=== PATIENT | female | born 1970 | race Caucasian/White ===

== ENCOUNTER 2018-08-31 03:49 | Inpatient (IN) ==
[2018-08-31] MEDS ORDERED: NS 1,000 ML IV ONE ×3 (05:14→08:34)
[2018-08-31] MEDS ORDERED: DILAUDID IV ONE (05:14)
[2018-08-31] MEDS ORDERED: ZOFRAN IV ONE (05:15)
[2018-08-31 05:49] LABS: BASO# 0.04 X1000 (0.0-0.2); BASO% 0.2 % (0.0-0.8); EOS# 0.18 X1000 (0.0-0.7); HEMATOCRIT 32.5 % (37.0-47.0); HEMOGLOBIN 10.1 g/dL (12.0-16.0); IMM GRAN# 0.08 X1000 (0.0-0.04); IMM GRAN% 0.4 % (0.0-0.5); LYMPH# 2.23 X1000 (1.2-3.4); LYMPH% 12.4 % (20.5-51.1); MCH 28.9 PG (27-31); MCHC 31.1 g/dL (33-37); MCV 92.9 FL (81-99); MONO# 1.85 X1000 (0.11-0.59); MONO% 10.3 % (1.7-9.3); MPV 10.8 FL (7.4-10.4); NEUT% 75.7 % (42.2-75.2); PLT 450 X1000 (130-400); RDW 14.3 % (11.5-14.5); WBC 17.98 X1000 (4.8-10.8)
[2018-08-31 06:10] LABS: ALB/GLOB RATIO 0.8; CALCIUM 8.3 mg/dL (8.8-10.2); TOTAL BILIRUBIN 0.24 mg/dL (0.20-1.00); TOTAL PROTEIN 6.7 g/dL (6.3-8.3)
--- NOTE | 2018-08-31 06:30 | PROVIDER DOCUMENTATION ---
HPI-Female /OB/Breast - General Chief Complaint: Flank Pain Stated Complaint: KIDNEY STONE Time Seen by Provider: 08/31/18 05:01 Source: reports: patient, old records Allergies/Adverse Reactions: Patient Allergies Allergy/AdvReac Type Severity Reaction Status Date / Time Penicillins Allergy Intermediate NAUSEA/VOMI Verified 08/31/18 04:05 TING ketorolac tromethamine * AdvReac Severe causes Verified 08/31/18 04:05 [From Toradol] "major headaches" Home Medications: Home Medication List Medication Instructions Recorded Confirmed Last Taken Type Amitriptyline HCl 100 mg PO BID 07/29/13 08/31/18 06/18/18 19:00 History Metoprolol Succinate E.r. [Toprol 100 mg PO BID 07/29/13 08/31/18 06/18/18 19: 00 History Xl] Quetiapine [Seroquel] 300 mg PO QHS 07/29/13 08/31/18 06/18/18 19:00 History Hydroxychloroquine Sulfate 1 tab PO DAILY 08/31/18 08/31/18 Unknown History [Plaquenil] Paroxetine [Paxil] 0 mg PO DAILY 08/31/18 08/31/18 Unknown History - History of Present Illness-Female /OB Nature of Presenting Problem: 48 yo WF with known renal stone forming disease present with severe bilateraal flank and midepigastric pain. She reports "dry heaves" for most of the night . She also reports SLE and unknown blood dyscrazia for which she gets monthly infusions. She did have aan ER visit 06/07 for left ureterolithiasis, a 5 mm stone in the left distal ureter. She was supposed to follow up with Dr Lowe but may not have. She denies fever and chills. Review of Systems - Adult - REVIEW OF SYSTEMS - ADULT ROS:: limited per condition Constitutional: reports: fatique, weight loss Eyes: reports: no symptoms reported Ears, Nose, Mouth & Throat: reports: no symptoms reported Cardiovascular: reports: no symptoms reported Respiratory: reports: no symptoms reported Gastrointestinal: reports: no symptoms reported Genitourinary: reports: see HPI Musculoskeletal: reports: no symptoms reported Integumentary: reports: no symptoms reported Neurological: reports: no symptoms reported Psychiatric: reports: no symptoms reported Past History - Adult - PAST MEDICAL HISTORY-ADULT Review of Records: reports: Old Records Reviewed, Nursing Assessment Review, Medications Reviewed Major Childhood Illnesses: reports: denies history Cardiovascular: reports: HTN Respiratory: reports: denies history, COPD Gastrointestinal: reports: denies history Obstetrical/Gynecological: reports: denies history Genitourinary: reports: kidney stones Musculoskeletal: reports: arthritis, fibromyalgia Neurological: reports: denies history Psychiatric: reports: anxiety Endocrine/Immune: reports: lupus Other Conditions: reports: denies history - PRIOR SURGERIES/PROCEDURES Surgical/Procedure History: reports: hysterectomy, back/neck, other (sinus brain ) - PRIOR HOSPITALIZATIONS Prior Hospitalizations: reports: for other non-related - IMMUNIZATION STATUS Childhood Immunizations: See Nurse Assessment Flu Vaccine: See Nurse Assessment - FAMILY HISTORY Family History: reviewed, not pertinent Physical Exam-General - PHYSICAL EXAM-ADULT Initial Vital Signs Reviewed: Yes - CONSTITUTIONAL General Appearance: alert, severe distress, thin - EYES Eyes: PERRL/EOMI, pink conjunctivae - HEAD, EARS, NOSE, MOUTH & THROAT HENMT: normocephalic/atraumatic, moist mucous membranes - NECK Neck: non-tender - RESPIRATORY Respiratory: chest non-tender, lungs clear - CARDIOVASCULAR Cardiovascular: normal peripheral pulses, regular rate, rhythm - GASTROINTESTINAL (ABDOMEN) Abdominal Exam: normal bowel sounds, guarding. negative: Dickson's sign - MUSCULOSKELETAL Back Exam: normal inspection, no vertebral tenderness - SKIN Integumentary: normal color, normal turgor - NEUROLOGIC Neurologic: grossly normal Progress - PLAN OF CARE/RESULTS Progress/Plan/Lab Results: Vital Signs - 8 hr 08/31/18 03:56 08/31/18 06:21 Temperature 97.8 F Pulse Rate 132 H 114 H Respiratory Rate 20 14 Blood Pressure 101/64 93/61 O2 Sat by Pulse Oximetry 99 99 Laboratory Results - last 24 hr 08/31/18 08/31/18 05:30 05:30 WBC 17.98 H RBC 3.50 L Hgb 10.1 L Hct 32.5 L MCV 92.9 MCH 28.9 MCHC 31.1 L RDW Std Deviation 14.3 Plt Count 450 H MPV 10.8 H Immature Gran % (Auto) 0.4 Neut % (Auto) 75.7 H Lymph % (Auto) 12.4 L [place] % (Auto) 10.3 H Eos % (Auto) 1.0 Baso % (Auto) 0.2 Immature Gran # (Auto) 0.08 H Neut # (Auto) 13.60 H Lymph # (Auto) 2.23 [place] # (Auto) 1.85 H Eos # (Auto) 0.18 Baso # (Auto) 0.04 Sodium 138 Potassium 4.0 Chloride 99 Carbon Dioxide 24 L Anion Gap 15 BUN 14 Creatinine 1.0 H Estimated GFR/1.73 m2 59 BUN/Creatinine Ratio 14 Glucose 97 Calculated Osmolality 276 Calcium 8.3 L Total Bilirubin 0.24 AST 26 ALT 17 Alkaline Phosphatase 92 Total Protein 6.7 Albumin 3.0 L Globulin 3.7 Albumin/Globulin Ratio 0.8 Orders Category Date Time Status Straight Catheterization ORDERED Care 08/31/18 07:[address] RENAL STONE SEARCH [CT] Stat Exams 08/31/18 05:18 Taken BLOOD CULTURE [BLDCUL] Stat Lab 08/31/18 07:24 Ordered CBC WITH ELECTRONIC DIFF [HEME] Stat Lab 08/31/18 05:30 Completed COMPREHENSIVE METABOLIC PANEL [CHEM] Stat Lab 08/31/18 05:30 Completed UA NIMS W/REFLEX CULT [URINALYSIS] Stat Lab 08/31/18 04:10 Uncollected 0.9% Sodium Chloride Inj [Ns] 1,000 ml Med 08/31/18 05:14 Discontinued IV 999 mls/hr CefTRIAXONE [Rocephin] 1 gm Med 08/31/18 07:02 Active 0.9% Sodium Chloride Inj [Ns] 50 ml IV NOW Hydromorphone [Dilaudid] Med 08/31/18 05:14 Discontinued 1 mg IV NOW ONE Ondansetron [Zofran] Med 08/31/18 05:15 Discontinued 4 mg IV NOW ONE Result Diagrams: 08/31/18 05:30 08/31/18 05:30 - CONSULTS/PCP/HOSPITALIST Notification #1 *Consult/PCP/Hospitalist*: Dr Noguera Time Discussed: 06:53 Consult Disposition: Will see in ED (He suggest admitting to hospitalist and he will see in consultation.) #2 Consult: DR TSAI Time Discussed: 07:29 Consult Disposition: Admit Departure - Departure Date of Disposition Decision: 08/31/18 Time of Disposition Decision: 07:00 DIAGNOSIS: Ureteral stone with hydronephrosis, Leukocytosis Disposition: ADMITTED INPATIENT 09 Certified Medical Emergency: Emergent Condition: Stable Referrals and Follow-Ups: Familia Saul MD [Primary Care Provider] - Discharge Education: Steps to Quit Smoking, [id number] - Critical Care Note This patient required my direct & personal management of CC.: No Attestation - Physician/ CRISTHIAN Attestation Patient care was provided by Advanced Practice Provider:: No The physician spent face to face time with patient:: Yes Advanced Practice Provider documentation review:: Supervising physician onsite and consulted in the evaluation and care of this patient. The physician did have a face to face encounter with the patient.
[2018-08-31] MEDS ORDERED: ROCEPHIN 1 GM in NS 50 ML IV ONE (07:02)
[2018-08-31] MEDS ORDERED: NS 1,000 ML IV SCH (07:30)
[2018-08-31 07:41] LABS: URINE SOURCE CLEAN CATCH
[2018-08-31 07:46] LABS: BILIRUBIN URINE NEGATIVE (NEGATIVE); BLOOD URINE NEGATIVE (NEGATIVE); COLOR YELLOW; GLUCOSE URINE NEGATIVE (NEGATIVE); KETONE URINE TRACE mg/dL (NEGATIVE); LEUKOCYTES URINE LARGE (NEGATIVE); NITRITE URINE POSITIVE (NEGATIVE); PH URINE 5.5; PROTEIN URINE 30 mg/dL (NEGATIVE); SP GRAVITY URINE 1.012; TURBIDITY URINE HAZY (CLEAR); UROBILINOGEN URINE NORMAL (NORMAL)
[2018-08-31 07:48] LABS: UR EPITHELIAL CELLS <10 /HPF (<10); URINE BACTERIA 4+ /HPF; URINE RBC <10 /HPF (<10); URINE WBC TNTC /HPF (<10)
[2018-08-31] MEDS ORDERED: INVANZ 1 GM/NS 1 GM/50 ML IVPB IV ONE (08:00)
[2018-08-31] MEDS ORDERED: DIPRIVAN 1% ONE (08:48)
[2018-08-31] MEDS ORDERED: FENTANYL ONE (08:48)
[2018-08-31] MEDS ORDERED: XYLOCAINE-MPF 2% ONE (08:50)
[2018-08-31] MEDS ORDERED: DECADRON ONE (08:50)
[2018-08-31] MEDS ORDERED: ZOFRAN ONE ×2 (08:50→10:37)
--- NOTE | 2018-08-31 09:43 | Diag Imaging Result Doc PS360 ---
EXAM: CT RENAL STONE SEARCH INDICATION: flank pain TECHNIQUE: This exam was performed using automated exposure control, adjustment of mA or kV according to patient size, and/or use of iterative reconstruction technique. COMPARISON: 06/07/2018 FINDINGS: There is platelike atelectasis or, less likely, mild infiltrate involving the lingula. There has been a prior cholecystectomy. There is a subcentimeter tiny hypodensity in the anterior aspect of the right hepatic lobe that is stable, probably a small cyst. The liver is grossly unremarkable, otherwise. The spleen, pancreas, and adrenal glands are unremarkable. There is a 5 mm obstructing stone in the distal left ureter just a few centimeters proximal to the UVJ and there is associated moderate left hydroureteronephrosis. This appears to be a different stone in the one that was obstructing on the previous study a few months ago. There are a few punctate nonobstructing intrarenal stones on the left as well. The right kidney is unremarkable. The urinary bladder is unremarkable. There are multiple phleboliths in the pelvis. There has been a previous hysterectomy. There is abundant stool in the colon suggesting possible constipation. There is no evidence of bowel obstruction. No focal bowel wall thickening is identified. The GI tract is essentially unremarkable, otherwise. The bony structures are intact. IMPRESSION: 1.Left nephrolithiasis with a 5 mm obstructing stone in the distal left ureter and associated moderate left hydroureteronephrosis. 2.Possible constipation. 3.Platelike atelectasis or, less likely, mild infiltrate involving the lingula. Please correlate clinically. Electronically signed by Geraldo Brown 08/31/2018 9:41 AM
[2018-08-31] MEDS ORDERED: NEOSPORIN G.U. IRRIGANT ONE ×2 (09:59→10:02)
--- NOTE | 2018-08-31 09:59 | CONSULTATION ---
DATE OF CONSULTATION: 08/31/2018 CHIEF COMPLAINT: Bilateral flank pain and urinary tract infection. HISTORY OF PRESENT ILLNESS: Ms. Hunter is a 48-year-old who presented to the emergency room overnight with complaint of bilateral flank pain with associated nausea and dry heaving. She previously was evaluated in the emergency room with a CT scan back in May, which showed a 5 mm stone in the left ureter and another stone in the left kidney. She thinks that she may have passed the ureteral stone. However, her pain returned last night and now is bilateral. She describes low-grade temperatures at home that respond to ibuprofen with associated nausea and vomiting, and currently is dry heaving in the emergency room. She denies any hematuria, but previously has seen Dr. Lowe for hematuria. The patient has a long history of kidney stones, and states that they have had to go "bust them up" multiple times. She cannot remember the last time that she was seen by a urologist. Denies urgency, frequency, or sensation of incomplete emptying. PAST MEDICAL HISTORY: 1. Fibromyalgia. 2. Arthritis. 3. COPD. 4. Hypertension. 5. Anxiety. 6. Nephrolithiasis PAST SURGICAL HISTORY: 1. Wrist surgery. 2. Hysterectomy. 3. Cholecystectomy. 4. Neck fusion. 5. Sinus surgery. 6. Port placement. 7. Ureteroscopy and stone removals-Multiple ALLERGIES: 1. Penicillin. 2. Toradol. MEDICATIONS: 1. Amitriptyline 100 mg p.o. b.i.d. 2. Metoprolol 100 mg p.o. b.i.d. 3. Seroquel 300 mg p.o. daily. 4. Hydroxychloroquine sulfate 1 tablet daily. 5. Paxil p.o. daily. FAMILY HISTORY: A family history of kidney stones and denies malignancy. SOCIAL HISTORY: Half a pack of cigarettes daily. Denies alcohol or illicit drug use. REVIEW OF SYSTEMS: Twelve-point review of systems performed which was negative. PHYSICAL EXAMINATION: Vital Signs: Heart rate 114, blood pressure 93/61, oxygen saturation 99% on room air. General: Mild to moderate distress resting comfortably in bed. Alert and oriented x3. HEENT: Pupils equal, round, and reactive to light. Mucous membranes moist. Normocephalic, atraumatic. Lungs: Good respiratory effort without audible wheezing or rales. Cardiovascular: Tachycardia with no evidence of lower extremity edema. Abdomen : Soft, nontender, and nondistended. No palpable masses. No hepatosplenomegaly. : No suprapubic tenderness. Mild left CVA tenderness. Neurologic: Gross motor and sensory intact. Musculoskeletal: Moving all extremities without issue. Skin: No obvious skin lesions or rashes. LABORATORY: White blood cell count 17.98, hemoglobin 30.1, hematocrit 32.5, and platelets 450,000. Sodium 138, potassium 4, chloride 99, bicarb 24, BUN 14, creatinine 1.0, and glucose 97. Urinalysis 4+ bacteria, too numerous to count leukocytes, nitrite positive, and negative blood. IMAGING: CT of the abdomen and pelvis was performed, which showed moderate hydroureteronephrosis down to the distal ureter on the left with possible stone in distal left ureter. There was several calcifications and phleboliths in the pelvis with no hydro on the right side. ASSESSMENT AND PLAN: Ms. Hunter is a 48-year-old who presents for evaluation for bilateral flank pain, and concern for urinary tract infection. The patient's urine definitely appears to be infected. She is nitrite positive with 4+ bacteria. I am concerned that she may be developing pyelonephritis with lower BPs and tachycardia. She has been afebrile while here , but does describe some low-grade temperatures. The patient's creatinine also slightly up from several days ago, and with her white blood cell count of 18, I recommended that she undergo cystoscopy and bilateral retrograde pyelograms in consideration for left ureteral stent placement. Risks, benefits, and alternatives were discussed with the patient, and the patient elected to proceed. We will plan to perform procedure later today. Will send urine culture and start on antibiotics. Will tailor antibiotics to culture specific regiment. Monitor postoperative pain. Please call with questions. cc: Darrel Noguera MD [facility]
[2018-08-31] MEDS: DILAUDID ONE ×4 (10:27→10:48)
[2018-08-31] MEDS ORDERED: PYRIDIUM PO PRN (10:48)
[2018-08-31] MEDS ORDERED: LEVSIN PO PRN (10:48)
[2018-08-31] MEDS ORDERED: FLOMAX PO ONE (11:00)
[2018-08-31] MEDS ORDERED: ZOFRAN IV PRN (11:50)
--- NOTE | 2018-08-31 12:24 | HISTORY AND PHYSICAL ---
PRIMARY CARE PHYSICIAN: Dr. Saul Immunoglobulin deficiency. Physician is Dr. Yoshi Nolasco. CHIEF COMPLAINT: Left flank abdominal pain for 3 days. HISTORY OF PRESENT ILLNESS: Ms. Alaina Hunter is a 48-year-old female with a medical history of urolithiasis and currently has a right double-J stent placed. Back in 01/2018, she actually had nonobstructive stones on the left but now presents with left flank abdominal pain and dysuria as well. Urinalysis reveals that she has urinary tract infection. She had a renal CT performed which showed an obstructive 5 mm kidney stone on the left, and Dr. Noguera with Urology was consulted and plans with stone removal today. She denies having any fever or chills. She claims that she did pass a stone earlier yesterday but was unable to continue passing stones. She claims to have been drinking an adequate amount of water. Denies any nausea or vomiting, just significant pain and dysuria. Labs revealed elevated white count of 17. She is tachycardic with a mildly low blood pressure, so she will receive IV fluid hydration and antibiotic therapy. PAST MEDICAL HISTORY: 1. Lupus. 2. Fibromyalgia with chronic pain syndrome. 3. Hypertension. 4. Urolithiasis. 5. IgG deficiency. 6. Constipation with bowel movements once every 2 to 3 days secondary to chronic use of narcotics. 7. Anxiety and depression. PAST SURGICAL HISTORY: 1. Most recently in 03/2018 had a right chest port placed. 2. Right ureteral double-J stent with stone extraction. 3. Lithotripsy. 4. Sinus surgery. 5. Neck surgery. 6. Hysterectomy. SOCIAL HISTORY: Half pack per day smoker for 40 plus years. Denies alcohol or illicit drug use. She lives at home with a friend named Wesley Colbert. FAMILY HISTORY: Mother's side of the family had breast cancer, lung cancer, and colon cancer. Mother also had kidney stones. Father's side of the family had heart disease. ALLERGIES: Penicillin and Toradol. HOME MEDICATIONS: Seroquel 300 mg p.o. nightly, amitriptyline 100 mg p.o. twice daily, Plaquenil 200 mg p.o. daily, Toprol extended release 100 mg twice daily, Paxil 10 mg p.o. daily. REVIEW OF SYSTEMS: A 14-point review of systems was complete, and all were negative except for those mentioned in the above HPI. Positive is that she is having left abdominal and flank pain for 3 days. She claims to have had a weight loss of 3 pounds in 2 months, decreased appetite, constipation, otherwise no other complaints. PHYSICAL EXAMINATION: VITAL SIGNS: Temperature is 98.6, heart rate 103, respiratory rate 20, blood pressure 107/63, O2 saturation is 98% on room air. GENERAL: Ms. Alaina Hunter is a 48-year-old female. She is in no acute distress. She is able to answer questions appropriately. She does occasionally moan with the pain in her left flank area. HEENT: Atraumatic and normocephalic. Pupils are equal, round and reactive to light. Extraocular movements were intact. Mucous membranes are dry. NECK: Trachea midline. CARDIOVASCULAR: S1 and S2. Tachycardic rate and rhythm. No rubs, gallops, or murmurs. No lower extremity edema. Negative for carotid bruits. Negative for JVD. Plus 2 dorsalis and radial pulses. PULMONARY: Clear to auscultation with bilateral breath sounds. No accessory muscle use or work of breathing noted. GASTROINTESTINAL: Soft. Tender in the left upper mid area and also left CVA tenderness. Hypoactive bowel sounds x4. EXTREMITIES: Moves all extremities equally with full range of motion. NEUROLOGICAL: Alert and oriented x3. Follows commands. Sensory is intact. SKIN: Warm, dry, and intact. DIAGNOSTIC DATA: White blood cells 17, hemoglobin 10, hematocrit 32, platelet count 450. Sodium is 138, potassium 4.0, BUN is 14, creatinine 1.0, glucose 97, calcium 8.3. Bilirubin is 0.24, AST is 26, ALT is 17, albumin 3.0, lactate not available yet. Urinalysis with 30 protein, trace ketones, positive nitrites, large leukocytes, too numerous to count white blood cells, 4+ bacteria. IMAGING: Report of the renal CT is not available yet, but the ER physician documented a 5 mm kidney stone that is obstructing on the left. ASSESSMENT AND PLAN: 1. Left obstructive kidney stone 5 mm. She will be going today with Dr. Noguera for renal stone extraction and possible stenting. 2. Urinary tract infection. Symptomatic with signs of sepsis, but she will receive fluid boluses x2 L, and then she will have IV fluids running at 150 mL an hour. Antibiotic coverage: She received a dose of Rocephin in the ER, but she will be continued on Invanz 1 g IV q.24 hours. She has an allergy to penicillins. 3. Left flank abdominal pain, severe. She will receive Dilaudid 1 mg IV q.3 hours p.r.n. 4. Fibromyalgia and lupus, chronic pain syndrome from that. She claims to take Percocet at home for that. It is not listed on her pain medication. She will continue her Plaquenil. 5. Hypertension. Currently hypotensive. Toprol will be held. 6. IgG deficiency. Dr. Nolasco follows her for that. She apparently has IV infusions once a month with a new right chest port that was placed in 03/2018. 7. Anxiety and depression. We will continue Seroquel and Paxil. 8. Tobacco abuse. Cessation discussed. Currently no plans to quit. 9. DVT prophylaxis with SCDs. Dictated by GIANFRANCO Dumont for David Hooks MD cc: GIANFRANOC Dumont MD Leroy F. Harris, MD Moses Awoniyi, MD William E. Hughes, MD I have seen and examined Ms Hunter today. I have also reviewed her labs and imagining studies. Ms Hunter has hx of SLE and previous kidney stones. Presents with Left flank abdominal pain for 3 days. IMAGING: Renal Ct reports a 5 mm kidney stone that is obstructing on the left. Urology has been consulted. I agree with the above HPI and the plan reflects my opinion discussed with the [facility]. JANETTE
[2018-08-31] MEDS: LR 1,000 ML IV SCH (12:32)
[2018-08-31] MEDS: DILAUDID IV PRN ×3 (12:32→21:04)
--- NOTE | 2018-08-31 19:27 | OPERATIVE NOTE ---
PROCEDURE DATE: 08/31/2018 PREOPERATIVE DIAGNOSES: 1. Left obstructing ureteral stone. 2. Left hydronephrosis. 3. Urinary tract infection. POSTOP DIAGNOSES: 1. Left obstructing ureteral stone. 2. Left hydronephrosis. 3. Urinary tract infection. PROCEDURE PERFORMED: 1. Cystoscopy. 2. Bilateral retrograde pyelogram. 3. Left ureteral stent placement. SURGEON: Darrel Noguera MD. COMPLICATIONS: None. ANESTHESIA: LMA. DRAINS: 6 x 24 cm left ureteral stent. SPECIMENS: None. OPERATIVE FINDINGS: Patient had a normal cystoscopy with no evidence of any mucosal abnormalities. A small amount of sediment was seen in the bladder on placement of scope. No bladder tumors, diverticulum, cellules, or bladder stones. Bilateral retrograde pyelograms were performed on the right with a normal ureter with no evidence of any obstruction with a delicate collecting system. On the left there was some difficulty passing the contrast past the obstructing stone. I was able to get a stent by this and had good curl both in the kidney as well as in the bladder. A small amount of sediment was then seen passing through the stent and appeared to be in good position on followup fluoroscopy. INDICATION FOR PROCEDURE: Ms. Hunter is a 48-year-old female who presented to the emergency room overnight complaining of bilateral flank pain. She had a CT scan performed which showed a possible 5 mm obstructing stone in the distal left ureter with associated hydroureteronephrosis. No obvious obstruction was seen on the right side. The patient's urinalysis showed 4+ bacteria, nitrite positive and many leukocytes, no blood present. White blood cell count was elevated at 18 and creatinine was 1.0. Due to persistent pain and concern for urinary tract infection with an obstructing stone is recommend to go cystoscopy and placement of left ureteral stent with plan to proceed with bilateral retrograde pyelogram since she is complaining of bilateral flank pain. Risks, benefits, alternatives surgical procedure discussed with patient, patient elected proceed. DESCRIPTION OF PROCEDURE: After informed consent was obtained, the patient was brought to the operating placed on operative table supine position. She underwent general anesthesia and received preoperative antibiotics and had received antibiotics previously in the emergency room. Following this she was placed into a dorsal lithotomy position was prepped and draped in usual sterile fashion. A preoperative time-out was performed with all parties in agreement, including anesthesia, surgical and nursing staff. Next a 21-Hebrew cystourethroscope was inserted through the urethra showing normal caliber urethra. No evidence of any stricture disease. Once inside the bladder the entire bladder was inspected with no evidence of any mucosal abnormalities, no papillary lesions, diverticulum, cellules, trabeculations, or bladder stones at which time both ureteral orifices visualized with efflux of clear yellow urine. There was some sediment present in the bladder itself. This was completely drained and then a open-ended ureteral catheter was inserted through the scope. A right retrograde pyelogram was then performed which outlined a normal ureter. No evidence of any obstruction or filling defects. The collecting system was delicate with no evidence of hydronephrosis. Open-ended catheter was removed and good drainage was seen from the collecting system. Attention was then placed to the left side. The left ureteral orifice was cannulized and flushed with Omnipaque that had gentamicin and irrigant present. It was difficult to get the contrast past the obstructing stone. Subsequent passed a wire through the open-ended catheter and seen to coil fluoroscopically up in the renal pelvis. Following this, open-ended catheter was completely removed and a [id number] stent was then passed over the wire and seen to fluoroscopically curl within the collecting system endoscopically visualized in the bladder. Drainage was seen through the holes and around the stent itself and had a small amount of sediment present. Post fluoroscopy showed good stent placement. Bladder was then cycled and drained. The patient then was awoken and was taken to recovery in stable condition. DISPOSITION: Patient will be admitted to the hospitalist for observation overnight and monitoring of pain as well as symptoms of urinary tract infection. Would continue with antibiotics, Flomax, Pyridium and Levsin as necessary for bladder spasms. cc: Darrel Noguera MD [facility]
[2018-08-31] MEDS: LOVENOX SUBQ SCH (21:05)
[2018-08-31] MEDS: PERIDEX MT SCH (21:05)
[2018-09-01] MEDS: DILAUDID IV PRN ×6 (00:42→20:11)
[2018-09-01] MEDS: LR 1,000 ML IV SCH (01:32)
[2018-09-01 06:18] LABS: BASO# 0.08 X1000 (0.0-0.2); BASO% 0.6 % (0.0-0.8); EOS# 0.43 X1000 (0.0-0.7); EOS% 3.3 % (0.0-10.0); HEMATOCRIT 29.9 % (37.0-47.0); IMM GRAN# 0.03 X1000 (0.0-0.04); IMM GRAN% 0.2 % (0.0-0.5); LYMPH# 2.71 X1000 (1.2-3.4); LYMPH% 20.9 % (20.5-51.1); MCH 28.8 PG (27-31); MCHC 30.1 g/dL (33-37); MCV 95.8 FL (81-99); MONO# 1.09 X1000 (0.11-0.59); MONO% 8.4 % (1.7-9.3); NEUT% 66.6 % (42.2-75.2); PLT 460 X1000 (130-400); RBC 3.12 XMIL (4.2-5.4); RDW 14.4 % (11.5-14.5); WBC 12.94 X1000 (4.8-10.8)
[2018-09-01 06:48] LABS: AGAP 14; BUN 7 mg/dL (8-22); CALCIUM 8.3 mg/dL (8.8-10.2); CHLORIDE 104 mmol/L (98-107); COSMO 279; CREATININE 0.8 mg/dL (0.5-0.9); ESTIMATED GFR > 60; GLUCOSE 63 mg/dL (70-104); IRON SATURATION 12 %; POTASSIUM 4.1 mmol/L (3.5-5.1); SODIUM 142 mmol/L (136-145); TCO2 24 mmol/L (25-35); TIBC 156 ug/dL; TOTAL IRON 18 ug/dL (49-151); UNBOUND IRON 138 ug/dL (112-346)
[2018-09-01 06:59] LABS: FERRITIN 172 ng/mL (13-150)
[2018-09-01] MEDS: INVANZ 1 GM/NS 1 GM/50 ML IVPB IV SCH (09:00)
[2018-09-01] MEDS: FLOMAX PO SCH (09:00)
[2018-09-01] MEDS: PERIDEX MT SCH ×2 (09:00→20:11)
--- NOTE | 2018-09-01 09:10 | PROGRESS NOTE ---
DATE: 09/01/2018 SUBJECTIVE: Postop day 1 from cystoscopy, bilateral retrograde pyelograms, and left ureteral stent placement. Overall, the patient seems to be doing well. She remains afebrile. She states that her pain is much better after her procedure yesterday. She is able tolerate a little bit of p.o. intake, and has been remaining hydrated, drinking Propel as well as water. She denies any nausea or vomiting, and states that she has been voiding without issue. She denies any significant nausea or vomiting. OBJECTIVE: Vital Signs: Temperature 98.1 degrees, heart rate 110, blood pressure 124/79, oxygen saturation 100% on room air. General: No acute distress. Resting comfortably in bed. Alert and oriented x3. HEENT: Normocephalic, atraumatic. Pupils equal, round, reactive to light. Pulmonary: Good respiratory effort without any audible wheezing or rales. Cardiovascular: Evidence of tachycardia. Abdomen: Soft, nontender, nondistended. : No suprapubic tenderness, with mild left CVA tenderness. LABORATORY DATA: White blood cell count 12.94, hemoglobin 9, hematocrit 29.9, platelets of 460,000. Sodium 142, potassium 4.1, chloride 104, bicarb 24, BUN 7, creatinine 0.8, glucose 63. ASSESSMENT AND PLAN: Ms. Hunter is a 48-year-old with anxiety, depression, history of nephrolithiasis, chronic obstructive pulmonary disease, and hypertension, who presents in consultation regarding bilateral flank pain, with concern for an obstructing left ureteral stone with associated hydroureteronephrosis. The patient was taken to the operating room yesterday for cystoscopy, bilateral retrograde pyelograms, and left ureteral stent placement. The patient tolerated this procedure well, and has had good pain control since. Overall, she looks well. She does continue to have some tachycardia up to 111 this morning, and has consistently been tachycardic throughout her stay. Uncertain if this is related to infection versus just some baseline tachycardia that she has. Would recommend workup by the hospitalist to see if there is an etiology for her tachycardia as she clinically does not look like someone with significant pyelonephritis as her white blood cell count improves, she remains afebrile, and her blood pressures have been within normal limits. Will continue to monitor her urine culture. That should return later today. Both her blood cultures were negative to date. Will continue on intravenous antibiotics, and tailor to culture specific antibiotics. Will continue to monitor. Please call with questions or concerns. cc: MD JANETTE Watkins
--- NOTE | 2018-09-01 14:19 | PROGRESS NOTE ---
DATE: 09/01/2018 SUBJECTIVE: This morning Ms. Hunter refers to be doing a little better. Still has a residual tenderness to the left flank. OBJECTIVE: Vital signs: Blood pressure is 109/72, pulse of 106, respirations 18, temperature is 98 degrees. General: Ms. Hunter is a 48-year-old female. She is in bed in no distress. HEENT: Mucosa is pink and moist. Anicteric. Acyanotic. Neck: Supple. Chest: Good air entry bilateral. There was no crepitations. No rhonchi. Cardiovascular: Regular rate and rhythm, slightly tachycardic but no murmurs, no rubs, no gallops. Abdomen: Soft, minimally tender in the left flank. MOTOR BRAKEMAN: Patient is awake, alert, and oriented. There is no focal neurological deficit. LABORATORY DATA: WBC is down to 12.94, hemoglobin is 9, platelet count of 460,000. Chemistry is also reviewed and unremarkable. The patient has a relative iron-deficiency anemia. B12 is 168, which is remarkably low. Vitamin D is also low at 16.1. Urine cultures positive for gram- negative sonali, which we are still waiting for the ID and sensitivity. ASSESSMENT: 1. Septic shock on presentation. The patient has been fluid resuscitated. Did not need to be on any pressor. 2. Left side pyelonephritis with hydroureteronephrosis. The patient is status post bilateral ureterogram and pyelogram with left ureteral stent placement and stone extraction by Dr. Noguera yesterday. 3. History of fibromyalgia and lupus on chronic medications for pain noted. 4. History of anxiety and depression. 5. Tobacco abuse. Patient has been counseled. 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 Follows up with Dr. Nolasco. 7. Gram-negative sonali pyelonephritis with urosepsis. The patient is currently on Invanz. Will be pending the ID and sensitivity and modify the antibiotic accordingly. 8. Vitamin B12 deficiency. The patient has been started on replacement. 9. Vitamin D deficiency. Will continue also with replacement. 10. Relative iron deficiency. The patient will be started on replacement. 11. Nephrolithiasis. This has been recurrent. Previous ureteric stone studies were consistent with calcium oxalate. The patient has been advised to continue adequate intake of calcium, adequate hydration, avoid high sodium load intake, and adequate hydration. The patient has been advised to continue adequate oral intake of calcium to avoid unopposed absorption of oxalate from the GI tract. cc: David Hooks MD
[2018-09-01] MEDS: LOVENOX SUBQ SCH (20:11)
[2018-09-02] MEDS: DILAUDID IV PRN ×5 (03:47→13:11)
[2018-09-02] MEDS: LR 1,000 ML IV SCH (03:48)
[2018-09-02 06:23] LABS: AGAP 14; BUN 5 mg/dL (8-22); CALCIUM 8.3 mg/dL (8.8-10.2); CHLORIDE 103 mmol/L (98-107); COSMO 273; CREATININE 0.7 mg/dL (0.5-0.9); ESTIMATED GFR > 60; GLUCOSE 62 mg/dL (70-104); POTASSIUM 4.2 mmol/L (3.5-5.1); SODIUM 139 mmol/L (136-145); TCO2 22 mmol/L (25-35)
[2018-09-02 06:33] LABS: BASO# 0.07 X1000 (0.0-0.2); BASO% 0.9 % (0.0-0.8); EOS# 0.33 X1000 (0.0-0.7); EOS% 4.4 % (0.0-10.0); HEMATOCRIT 38.9 % (37.0-47.0); HEMOGLOBIN 12.4 g/dL (12.0-16.0); IMM GRAN# 0.03 X1000 (0.0-0.04); IMM GRAN% 0.4 % (0.0-0.5); LYMPH# 2.26 X1000 (1.2-3.4); LYMPH% 30.4 % (20.5-51.1); MCHC 31.9 g/dL (33-37); MONO# 0.56 X1000 (0.11-0.59); MONO% 7.5 % (1.7-9.3); MPV 11.8 FL (7.4-10.4); NEUT# 4.18 X1000 (1.4-6.5); NEUT% 56.4 % (42.2-75.2); PLT 257 X1000 (130-400); RBC 4.14 XMIL (4.2-5.4); RDW 14.2 % (11.5-14.5); WBC 7.43 X1000 (4.8-10.8)
--- NOTE | 2018-09-02 06:41 | PROGRESS NOTE ---
DATE: 09/02/2018 SUBJECTIVE: Ms. Hunter is a 48-year-old who is postoperative day 2 from cystoscopy, bilateral retrograde pyelograms, placement of left ureteral stent. Overall, patient seems to be doing well. She remains afebrile with her vital signs stable. Her pain seems well controlled. She is able to remain hydrated, drink fluids, and had a small amount of p.o. intake. She denies any nausea, vomiting, fevers, or chills. Her kidney function and white blood cell count improved yesterday. Urine culture growing gram negative rods. OBJECTIVE: Vital Signs: Temperature 98.1 degrees, heart rate 101, blood pressure was 160/76, oxygen saturation 97% on room air. General: No acute distress. Resting comfortably in bed. Alert and oriented x3. HEENT: Normocephalic, atraumatic. Pupils equal, round , react to light. Mucous membranes moist. Pulmonary: Good respiratory effort without any audible wheezing or rales. Cardiovascular: Improved tachycardia with no evidence of lower extremity edema. Abdomen: Soft, nontender, nondistended. : No suprapubic tenderness. No suprapubic distention. No evidence of CVA tenderness. ASSESSMENT AND PLAN: Ms. Hunter is a 48-year-old with a history of anxiety, depression, nephrolithiasis, chronic obstructive pulmonary disease, and hypertension, who presented in consultation regarding bilateral flank pain and concern for obstructing left ureteral stone with associated hydronephrosis. The patient was taken to the operating room on Sunday for a cystoscopy, bilateral retrograde pyelograms, and left ureteral stent placement. The patient has been doing well since then. Her vital signs have been stable and she has had an improved heart rate to the low 100s today. The patient's urine culture is growing gram- negative rods, which hopefully will finalize today with specificity and sensitivities. She has blood work in the lab today. We will continue to monitor her white blood cell count as well as her renal function. Clinically, she looks like she is improving. I think that she probably can go home once her urine culture finalizes. Would obtain a p.o. option if available and treat for 10 to 14 days. We will plan for her to follow up in the urology clinic for treatment of her ureteral stones. Placed prescriptions for pain medication, Levsin, Flomax, and hyoscyamine on her chart. The patient would need a prescription for antibiotics when her culture finalizes. cc: Darrel Noguera MD [facility]
[2018-09-02 07:26] LABS: EOS 1 % (1-10); LYMPHS 28 % (21-51); MONO 8 % (1-9); SEGS 63 % (42-75)
[2018-09-02 07:32] VITALS: BP 122/72
[2018-09-02] MEDS: FLOMAX PO SCH (08:59)
[2018-09-02] MEDS: INVANZ 1 GM/NS 1 GM/50 ML IVPB IV SCH (09:00)
[2018-09-02] MEDS ORDERED: VITAMIN B-12 PO SCH (09:00)
[2018-09-02] MEDS: PERIDEX MT SCH ×2 (09:00→09:03)
[2018-09-02] MEDS ORDERED: VITAMIN D PO SCH (09:00)
--- NOTE | 2018-09-02 09:41 | Diag Imaging Result Doc PS360 ---
EXAM: RETROGRADES 2 OR 3 FILMS 08/31/2018 HISTORY: L SIDE STENT INSERTION TECHNIQUE: 21 images COMMENT: Contrast was injected in the right ureteral orifice without evidence of obstruction or fixed intraluminal filling defect. A stent was placed on the left by Dr. Noguera. IMPRESSION: Left ureteral stent placement. Normal right retrograde pyelogram. Electronically signed by Tobias Loera 09/02/2018 9:39 AM
[2018-09-02] MEDS ORDERED: LEVAQUIN PO SCH (12:30)
--- NOTE | 2018-09-03 06:38 | DISCHARGE SUMMARY ---
ADMISSION DATE: 08/31/2018 DISCHARGE DATE: 09/02/2018 DISPOSITION: Home. FOLLOWUP: 1. Dr. Saul. 2. Dr. Noguera. CONSULTATIONS DURING THIS ADMISSION: Urology was consulted. Patient was seen by Dr. Noguera. INVASIVE PROCEDURES DONE DURING THIS ADMISSION: Cystoscopy, bilateral retrograde pyelogram, and a left ureteral stent was deployed by Dr. Noguera. This was done on 08/31/2018. IMAGING STUDIES OF SIGNIFICANCE: 1. A renal CT scan was done which showed left nephrolithiasis with a 5 mm obstructing stone in the distal left ureter associated with moderate left hydroureteronephrosis, possible constipation. 2. A pyelogram image showed the left ureteral stent placement, normal right ureter, a retrograde pyelogram. ASSESSMENT AT THE TIME OF ADMISSION: 1. Left obstructive kidney stone. 2. Urinary tract infection. 3. Left flank and abdominal pain. DIAGNOSES AT THE TIME OF DISCHARGE: 1. Septic shock on presentation. 2. Left side pyelonephritis with hydroureteronephrosis secondary to obstructive nephrolithiasis. The patient is status post left ureteral stent placement. 3. Escherichia coli pyelonephritis. Patient has been switched to Levaquin. 4. History of fibromyalgia and lupus, on chronic medications for pain. 5. History of anxiety and depression. 6. Tobacco abuse. 7. Immunoglobulin deficiency. Patient follows up with Dr. Nolasco. He is on monthly infusion of intravenous immunoglobulin. 8. B12 and vitamin D deficiencies. This will be replaced. 9. Relative iron deficiency. The patient is on replacement. 10. Nephrolithiasis noted. Prophylactic management has been discussed with her including adequate hydration, adequate calcium intake to avoid unopposed oxalate absorption, and a low sodium load diet. DISCHARGE MEDICATIONS: 1. Quetiapine 300 mg. 2. Amitriptyline 100 mg b.i.d. 3. Metoprolol 100 mg b.i.d. 4. Cyanocobalamin 1000 mcg daily. 5. Shady 0.125 p.o. q.6. 6. Levofloxacin 250 p.o. daily. 7. Cholecalciferol 2000 units p.o. daily. 8. Tamsulosin 0.4 p.o. daily. 9. [place] 7.5 q.6. PRESENTING COMPLAINT: Left flank pain. HISTORY OF PRESENTING COMPLAINT: Ms. Hunter is a 48-year-old, female with multiple medical comorbidities who presented to the emergency department because of left-sided abdominal pain. The patient was evaluated and was found to have a 5 mm obstructing stone in the left ureter causing hydroureteronephrosis. The patient was admitted for further medical care. HOSPITAL COURSE: The patient was admitted and was adequately hydrated. IV antibiotics were started and urology was consulted. Patient was seen by Dr. Noguera. Surgery was done. Cystoscopy with bilateral pyelogram was done and a stent was placed in the left ureter. Postoperatively, Ms. Hunter continues to improve. Today, her urine cultures is positive for E. coli which is pansensitive. She is allergic to penicillins so we have chosen to put her on p.o. Levaquin for a total of 10 days. She will follow up with Dr. Noguera for the stent removal at a later date. She will also follow up with her primary care doctor, Dr. Saul. All the discharge instructions were discussed with her including prophylaxis measures to prevent further stone formation. The was at the bedside at the time of the encounter. Both of them expressed understanding of the recommendations. Discharge time was 36 minutes. cc: MD Familia Mckenna MD Patrick Guthrie, MD
== END 2018-09-02 15:26 | disposition home or self-care (01) | DRG 853 ==
LOC: ED 03:49 → 4N 10:22
PROVIDERS: ATTEND Internal Medicine
CPT/HCPCS: 74176; 74420; 80048; 80053; 81001; 82306; 82607; 82728; 82746; 83540; 83550; 83605; 85025; 86038; 86039; 86850; 86900; 86901; 87040; 87077; 87088; 87186; 94761; 96365; 96375; 99285; A9270; J0696; J1100; J1170; J1335; J1650; J2405; J3010; J7030; J7120; Q9966; Q9967

== ENCOUNTER 2019-05-17 10:03 | Inpatient (IN) ==
--- NOTE | 2019-05-17 10:26 | PROVIDER DOCUMENTATION ---
HPI-General Adult - General Chief Complaint: Clotted Vas Access Stated Complaint: "PORT STOPPED UP" Time Seen by Provider: 05/17/19 10:17 Source: patient Allergies/Adverse Reactions: Patient Allergies Allergy/AdvReac Type Severity Reaction Status Date / Time Penicillins Allergy Intermediate NAUSEA/VOMI Verified 05/17/19 10:26 TING ketorolac tromethamine * AdvReac Severe causes Verified 05/17/19 10:26 [From Toradol] "major headaches" Home Medications: Home Medication List Medication Instructions Recorded Confirmed Last Taken Type Quetiapine [Seroquel] 300 mg PO QHS 07/29/13 05/17/19 05/16/19 20:00 History Hydrocodone/Acetaminophen [Excello 1 each PO BID 09/20/18 05/17/19 05/17/19 04:30 History 7.5-325 Tablet] Hydroxychloroquine Sulfate 200 mg PO BID 09/20/18 05/17/19 05/16/19 20:00 History [Plaquenil] Ondansetron [Zofran] 8 mg PO PRN PRN 09/20/18 05/17/19 09/24/18 05:00 History Tizanidine [Zanaflex] 4 mg PO TID 09/20/18 05/17/19 05/16/19 20:00 History Fluticasone 50 Mcg Nasal [place] 1 spray INTRANASAL DAILY #1 bottle 04/02/19 05/17/19 05/16/19 20:00 Rx [Flonase] Prednisone 20 mg PO DIRECTED 05/17/19 05/17/19 05/13/19 History - History of Present Illness -Gen Adult Nature of Presenting Problems: [id number] presents to the ER with c/o neck pain surrounding her PAC that began yesterday. She reports the last time having it accessed with approx 2 weeks ago. She states that it is usually swollen and painful when she moves her neck. Location of Pain/Injury: reports: neck (right side) Pain Radiation: reports: jaw, other (ear) Quality of Pain: reports: aching Severity: reports: moderate Onset/Duration: reports: 24 hours ago Modifying Factors: improves with: cold/heat therapy Associated Symptoms: denies: fever/chills Review of Systems - Adult - REVIEW OF SYSTEMS - ADULT Constitutional: reports: see HPI. denies: chills, fever Eyes: reports: no symptoms reported Ears, Nose, Mouth & Throat: reports: no symptoms reported Cardiovascular: reports: no symptoms reported Respiratory: reports: no symptoms reported Gastrointestinal: reports: no symptoms reported Genitourinary: reports: no symptoms reported Musculoskeletal: reports: no symptoms reported Integumentary: reports: see HPI, other (neck pain surrounding PAC) Neurological: reports: no symptoms reported Psychiatric: reports: no symptoms reported Endocrine: reports: no symptoms reported Hematologic/Lymphatic: reports: no symptoms reported Allergic/Immunologic: reports: no symptoms reported All Other Systems: Reviewed and Negative Past History - Adult - PAST MEDICAL HISTORY-ADULT Review of Records: reports: Old Records Reviewed, Nursing Assessment Review, Medications Reviewed, Social history reviewed & non-contributory. Major Childhood Illnesses: reports: denies history Cardiovascular: reports: HTN Respiratory: reports: denies history, COPD Gastrointestinal: reports: denies history Obstetrical/Gynecological: reports: denies history Genitourinary: reports: kidney stones Musculoskeletal: reports: arthritis, chronic pain, fibromyalgia, other (lupus) Neurological: reports: denies history Psychiatric: reports: anxiety Endocrine/Immune: reports: lupus Other Conditions: reports: denies history - PRIOR SURGERIES/PROCEDURES Surgical/Procedure History: reports: hysterectomy, back/neck, other (sinus br ain) - PRIOR HOSPITALIZATIONS Prior Hospitalizations: reports: for other non-related - IMMUNIZATION STATUS Childhood Immunizations: See Nurse Assessment Flu Vaccine: See Nurse Assessment - FAMILY HISTORY Family History: reviewed, not pertinent - SOCIAL HISTORY Smoking: denies Substance Use: denies Living Situation: family Physical Exam-General - PHYSICAL EXAM-ADULT Initial Vital Signs Reviewed: Yes - CONSTITUTIONAL General Appearance: alert, mild distress - EYES Eyes: PERRL/EOMI, pink conjunctivae - HEAD, EARS, NOSE, MOUTH & THROAT HENMT: moist mucous membranes - NECK Neck: full range of motion, supple - RESPIRATORY Respiratory: lungs clear, normal breath sounds - CARDIOVASCULAR Cardiovascular: regular rate, rhythm - GASTROINTESTINAL (ABDOMEN) Abdominal Exam: non tender, soft - MUSCULOSKELETAL Extremity: non-tender, normal gait - SKIN Integumentary: normal turgor, warm/dry - NEUROLOGIC Neurologic: grossly normal - PSYCHIATRIC Psych/Mental Status: oriented x 3 Progress - PLAN OF CARE/RESULTS Progress/Plan/Lab Results: Vital Signs - 8 hr 05/17/19 10:04 Temperature 97.8 F Pulse Rate 112 H Respiratory Rate 22 Blood Pressure 129/79 O2 Sat by Pulse Oximetry 99 Orders Category Date Time Status CT NECK W/CONTRAST [CT] Stat Exams 05/17/19 10:17 Ordered patient verbalizes an understanding of POC and agrees with treatment rendered here today. Result Diagrams: 05/17/19 11:35 05/17/19 11:35 - CT/MRI 1 CT Study: Neck Impression: Abnormal (FINDINGS: There is a right internal jugular chest port. There is complete thrombosis of the right internal jugular vein at the level of the catheter entry, and also a little bit cephalad. At the distal catheter tip in all the way down to the SVC and right atrium the veins are completely patent. No inflammatory changes. All other vessels are clear. No adenopathy. No fluid collections. There are fusion changes of the cervical spine. No acute bony lesions. The lung apices are clear. Normal aortic arch. 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 At the catheter tip and down to the heart, the veins are completely patent.), See EMR Report - CONSULTS/PCP/HOSPITALIST Notification #1 *Consult/PCP/Hospitalist*: Dr Ramirez Time Discussed: 12:56 Reason/Comments: Thrombosis of PAC Consult Disposition: Admit (admit to hospitalist anticoagulate for 24 then PAC can be removed.) #2 Consult: GIANFRANCO Amaral Time Discussed: 12:57 Reason/Comments: Thrombosis of PAC Consult Disposition: Admit Departure - Departure Date of Disposition Decision: 05/17/19 Time of Disposition Decision: 12:58 DIAGNOSIS: Thrombosis of right internal jugular vein Disposition: ADMITTED INPATIENT 09 Certified Medical Emergency: Emergent Condition: Critical Additional Freetext Instructions: ED Follow Up Instructions: You have been treated by a care provider in the Emergency Department. These instructions are being provided to you so you can have an understanding of how to care for yourself upon discharge. Upon discharge from the Emergency Department, you are responsible for making arrangements for follow-up care by a physician of your choice. Take all prescribed medications as directed. Return to the Emergency Department immediately for any new or worsening symptoms. You may call the Physician Referral phone number at [phone] to obtain a list of Physicians who are taking new patients. Referrals and Follow-Ups: Familia Saul MD [Primary Care Provider] - - Critical Care Note This patient required my direct & personal management of CC.: No Attestation - Physician/ CRISTHIAN Attestation Patient care was provided by Advanced Practice Provider:: Yes Advanced Practice Provider:: Fred Bernard Advanced Practice Provider documentation review:: The Mid-level provider documentation, treatment plan and medical decision making was reviewed by the physician who agrees with all treatment and medical decision making by the MLP. The physician spent face to face time with patient:: Yes (dr Lopez) Advanced Practice Provider documentation review:: Supervising physician onsite and consulted in the evaluation and care of this patient. The physician did have a face to face encounter with the patient.
[2019-05-17 11:54] LABS: BASO# 0.09 X1000 (0.0-0.2); BASO% 0.7 % (0.0-0.8); EOS# 0.45 X1000 (0.0-0.7); EOS% 3.4 % (0.0-10.0); HEMATOCRIT 39.2 % (37.0-47.0); HEMOGLOBIN 12.8 g/dL (12.0-16.0); IMM GRAN# 0.03 X1000 (0.0-0.04); IMM GRAN% 0.2 % (0.0-0.5); LYMPH# 3.62 X1000 (1.2-3.4); LYMPH% 27.5 % (20.5-51.1); MCH 31.2 PG (27-31); MCHC 32.7 g/dL (33-37); MCV 95.6 FL (81-99); MONO# 1.25 X1000 (0.11-0.59); MONO% 9.5 % (1.7-9.3); MPV 10.8 FL (7.4-10.4); NEUT# 7.71 X1000 (1.4-6.5); NEUT% 58.7 % (42.2-75.2); PLT 203 X1000 (130-400); RDW 13.4 % (11.5-14.5); WBC 13.15 X1000 (4.8-10.8)
[2019-05-17 12:07] LABS: AGAP 11; ALB/GLOB RATIO 1.4; ALBUMIN 3.9 g/dL (3.5-5.0); ALKALINE PHOSPHATASE 86 U/L (32-104); BUN 13 mg/dL (8-22); CALCIUM 8.9 mg/dL (8.8-10.2); CHLORIDE 105 mmol/L (98-107); COSMO 276; CREATININE 0.7 mg/dL (0.5-0.9); ESTIMATED GFR > 60; GLUCOSE 77 mg/dL (70-104); GOT 14 U/L (10-30); GPT 7 U/L (10-36); POTASSIUM 4.3 mmol/L (3.5-5.1); SODIUM 139 mmol/L (136-145); TCO2 23 mmol/L (25-35); TOTAL BILIRUBIN 0.41 mg/dL (0.20-1.00); TOTAL PROTEIN 6.6 g/dL (6.3-8.3)
--- NOTE | 2019-05-17 12:19 | Diag Imaging Result Doc PS360 ---
CT NECK W/CONTRAST - 05/17/2019 INDICATION: neck pain surrounding PAC COMPARISON: None FINDINGS: There is a right internal jugular chest port. There is complete thrombosis of the right internal jugular vein at the level of the catheter entry, and also a little bit cephalad. At the distal catheter tip in all the way down to the SVC and right atrium the veins are completely patent. No inflammatory changes. All other vessels are clear. No adenopathy. No fluid collections. There are fusion changes of the cervical spine. No acute bony lesions. The lung apices are clear. Normal aortic arch. 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 At the catheter tip and down to the heart, the veins are completely patent. This exam was performed using automated exposure control, adjustment of mA or kV according to patient size, and/or use of iterative reconstruction technique Electronically signed by Enrique Beverly 05/17/2019 12:17 PM
[2019-05-17] MEDS ORDERED: NORCO-10 PO ONE (12:54)
--- NOTE | 2019-05-17 13:41 | HISTORY AND PHYSICAL ---
HISTORY OF PRESENT ILLNESS/PAST MEDICAL HISTORY: 1. Ms. Hunter is 49-year-old female with a medical history of urolithiasis. She had a right double-J stent placed back on 01/30/2018, actually had nonobstructive stones in the left but then became symptomatic. 2. Systemic lupus erythematosus, mainly complicated by arthralgia and renal dysfunction. 3. Fibromyalgia with chronic pain. 4. Hypertension. 5. IgG deficiency. Gets IV immunoglobulin once a month per Dr. Nolasco and she has a Port-A-Cath on her side, right subclavian. 6. Constipation. 7. Anxiety depression. PAST SURGICAL HISTORY: 1. On 04/01/2018, had right Port-A-Cath placed. 2. Right ureteral double-J stent with cyst with stone extraction. I think that was back earlier in August or July 2018. 3. Lithotripsy. 4. Sinus surgery. 5. Neck surgery. She has had 2 different plates by her description put in her cervical spine, posterior. 6. Status post hysterectomy. 7. Her Port-A-Cath has clotted off and the last couple times have had trouble so it is going to need to be removed. She is going to need IV heparin under Dr. Ramirez's direction. PAST SURGICAL HISTORY: 1. On 04/01/2018, had a right Port-A-Cath placed. 2. Right ureteral double-J stent with stone extraction. 3. Lithotripsy. 4. Sinus surgery. 5. Neck surgery. 6. Hysterectomy. SOCIAL HISTORY: Smokes about a half pack per day, over 40 year pack year history of smoking. Denies alcohol or illicit drugs. FAMILY HISTORY: Mother's side of family had breast cancer, lung cancer, colon cancer. Mother also had kidney stones. Fathers's side of the family had heart disease. ALLERGIES: Penicillin and Toradol. Penicillin when she was a kid and described a rash. Toradol just makes her feel real funny. HOME MEDICATIONS: Reviewed. REVIEW OF SYSTEMS: General: No weight gain or loss. No fever or chills. HEENT: Unremarkable. Respiratory: No increased work of breathing or dyspnea. Cardiovascular: No chest pain or tachy palpitation Gastrointestinal/Genitourinary: Unremarkable. Musculoskeletal/neurological: Neurologic no significant complaints. PHYSICAL EXAMINATION: VITAL SIGNS: Temperature 97.8 degrees, pulse 112, respirations 22, blood pressure 129/79, weight 105 pounds. Height 5 feet 3 inches. Pupils are equal and round. LUNGS: Clear in all lung an. CARDIOVASCULAR: Regular rhythm and rate without murmur or S3. ABDOMEN: Soft. SKIN: Warm and dry. LABORATORY DATA: White count 74625, hematocrit 39, platelet count 203,000. Sodium 139, potassium 4.3, chloride 105, BUN 13, creatinine 0.7. AST is 14, ALT is 7, alkaline phosphatase is 86, albumin 2.7. IMAGING: CT of the neck. 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 ASSESSMENT AND PLAN: 1. Clotted internal jugular vein with Port-A-Cath. We will put her on IV heparin and plan is to pulled the Port-A-Cath. 2. Systemic lupus erythematosus with immunoglobulin deficiency. She will most likely need another venous catheterization. It is probably worth checking for lupus anticoagulant, and I suspect she will need to be on anticoagulant for a little time. I think we probably look back. I do not know that she has had studies for coagulation. I think we will see if any previous lab has been sent, but we will send off for lupus anticoagulant. cc: Andrew Dalal MD
[2019-05-17] MEDS ORDERED: NS 1,000 ML IV ONE (14:45)
[2019-05-17] MEDS ORDERED: ZOFRAN IV PRN (14:45)
[2019-05-17] MEDS ORDERED: PREDNISONE PO SCH (14:45)
[2019-05-17] MEDS ORDERED: HEPARIN 25,000 UNITS/D5W 25,000 UNIT/250 ML IV.SOLN IV SCH (14:45)
[2019-05-17] MEDS ORDERED: TYLENOL PO PRN (14:45)
[2019-05-17] MEDS ORDERED: DEMEROL IV ONE (16:24)
[2019-05-17] MEDS: ZANAFLEX PO SCH (17:32)
--- NOTE | 2019-05-17 17:52 | GENERAL SURGERY CONSULTATION ---
DATE: 05/17/2019 REASON FOR CONSULTATION: Internal jugular vein DVT associated with Port-A-Cath. HISTORY OF PRESENT ILLNESS: This is a 49-year-old female with multiple medical problems including lupus. She has chronic kidney stones and she has immunodeficiency requiring immunoglobulin infusions, for which she has a Port-A-Cath that was [place] [address] Watts. She presented with pain in her neck. CT scan in the emergency department showed a DVT. She was admitted, on a heparin drip. She has no chest pain, no shortness of breath. MEDICAL HISTORY: 1. IgG deficiency. 2. Fibromyalgia and chronic pain. 3. Hypertension. 4. Lupus. 5. Urolithiasis. 6. Anxiety. 7. Chronic constipation. SURGICAL HISTORY: She has had a right internal jugular vein Port-A-Cath, multiple ureteral stents, lithotripsy, sinus surgery, neck surgery, hysterectomy. SOCIAL HISTORY: He does smoke, for over 40 years. No alcohol or drugs. Her mother is here with her. FAMILY HISTORY: Reviewed. Significant for breast cancer, lung cancer, colon cancer, kidney stones. REVIEW OF SYSTEMS: A 10-point review of systems is negative otherwise than mentioned in the HPI. PHYSICAL EXAMINATION: She is afebrile. Pulse in the low 100s. Blood pressure 133/89, O2 saturation 100% on room air.General: She is alert. HEENT: Right-sided internal jugular vein port that is well healed. There is no cellulitis. There is no significant swelling or induration along the port site. She is somewhat tender. She has left external jugular vein peripheral IV. Cardiovascular: Normal rate. Pulmonary: No increased work of breathing. Abdomen: Soft, nontender. Integument: Warm and dry. Psychiatric: She is anxious, but no acute distress. Neurologic: No gross deficits. Peripheral vascular: No upper or lower extremity edema. She has palpable radial pulses in her wrist. LABORATORY AND DIAGNOSTIC DATA: White count is 13, hematocrit is 39, platelets 203,000. Creatinine 0.7. LFTs are normal. I reviewed her CT scan of her neck. ASSESSMENT AND PLAN: A 49-year-old female with deep vein thrombosis related to Port-A-Cath placement. I have recommended initiation of heparin therapy for the next 24 to 48 hours, and then port removal. After adequate anticoagulation, we will place a port again. I have discussed the plan with the patient. Will monitor going forward. Plan for port removal in the next day or so. cc: Chico Ramirez MD
[2019-05-17] MEDS: SEROQUEL PO SCH (20:27)
[2019-05-17] MEDS: NORCO-5 PO PRN (20:28)
[2019-05-17] MEDS: PLAQUENIL PO SCH (20:28)
[2019-05-18] MEDS: NORCO-5 PO PRN ×2 (01:48→09:19)
[2019-05-18 04:44] LABS: BASO# 0.07 X1000 (0.0-0.2); BASO% 0.6 % (0.0-0.8); EOS# 0.44 X1000 (0.0-0.7); HEMATOCRIT 36.5 % (37.0-47.0); HEMOGLOBIN 11.7 g/dL (12.0-16.0); IMM GRAN# 0.02 X1000 (0.0-0.04); IMM GRAN% 0.2 % (0.0-0.5); LYMPH% 35.1 % (20.5-51.1); MCH 30.7 PG (27-31); MCHC 32.1 g/dL (33-37); MCV 95.8 FL (81-99); MONO# 1.27 X1000 (0.11-0.59); MONO% 11.4 % (1.7-9.3); MPV 10.8 FL (7.4-10.4); NEUT% 48.7 % (42.2-75.2); PLT 210 X1000 (130-400); RBC 3.81 XMIL (4.2-5.4); RDW 13.4 % (11.5-14.5)
[2019-05-18 05:03] LABS: AGAP 10; ALB/GLOB RATIO 1.1; ALBUMIN 3.2 g/dL (3.5-5.0); ALKALINE PHOSPHATASE 74 U/L (32-104); BUN 12 mg/dL (8-22); CHLORIDE 110 mmol/L (98-107); COSMO 282; CREATININE 0.7 mg/dL (0.5-0.9); ESTIMATED GFR > 60; GLUCOSE 89 mg/dL (70-104); GOT 11 U/L (10-30); GPT 6 U/L (10-36); MAGNESIUM 1.7 mg/dL (1.5-2.7); POTASSIUM 3.8 mmol/L (3.5-5.1); SODIUM 142 mmol/L (136-145); TCO2 22 mmol/L (25-35); TOTAL BILIRUBIN 0.28 mg/dL (0.20-1.00); TOTAL PROTEIN 6.1 g/dL (6.3-8.3)
[2019-05-18] MEDS ORDERED: HEPARIN 25,000 UNITS/D5W 25,000 UNIT/250 ML IV.SOLN IV SCH ×3 (05:22→14:27)
[2019-05-18] MEDS ORDERED: HEPARIN IV ONE ×2 (05:24→14:31)
[2019-05-18] MEDS: ZANAFLEX PO SCH ×3 (09:20→17:36)
[2019-05-18] MEDS: PLAQUENIL PO SCH ×2 (09:20→20:04)
--- NOTE | 2019-05-18 13:01 | PROGRESS NOTE ---
DATE: 05/18/2019 SUBJECTIVE: Ms. Hunter had a headache for most of the day yesterday. It is a little better today. I will go up on her hydrocodone. She takes 7.5 twice a day. I will let her have it 3 times a day while she is here. She is on a heparin drip. She has a clotted Port-A-Cath on the right. OBJECTIVE: Vital Signs: She remains afebrile, temperature 98.3 degrees, pulse 108, respirations 16, blood pressure 116/81. HEENT: Pupils are equal round. Lungs: Clear in all lung an. Cardiovascular: Regular rhythm and rate without murmur or S3. Abdomen: Soft. Skin: Warm and dry. Urine output was 900 mL. ASSESSMENT AND PLAN: A 49-year-old with: 1. Deep venous thrombosis related to a Port-A-Cath on the right side. Recommended heparin therapy for 24 to 48 hours, and then port removal after adequate anticoagulation, replace support again, and the patient understands. 2. The patient has systemic lupus erythematosus and has immunoglobulin deficiency for which she gets immunoglobulin. This is the main reason for her Port-A-Cath. 3. Headaches. Apparently, she has a history of chronic pain, requesting an increase on her pain medication. I did send off some studies just for coagulation for hypercoagulability. Will go up on the hydrocodone to 7.5, which she can have every 6 hours as needed. cc: Andrew Dalal MD
[2019-05-18] MEDS: NORCO-7.5 PO PRN ×2 (13:28→20:04)
--- NOTE | 2019-05-18 15:03 | GENERAL SURGERY PROGRESS NOTE ---
DATE: 05/18/2019 SUBJECTIVE: No events overnight. No fevers. No tachycardia. OBJECTIVE: Oxygen saturation 97% on room air. General: She is alert. Her right-sided port is in place with no significant swelling. No cellulitis. Upper extremities well perfused with no edema. White count is 11, hematocrit 36. PTT was 46.2 most recently. ASSESSMENT AND PLAN: A 49-year-old female with deep venous thrombosis related to a port on the right. We will continue her heparin for 48 hours. I will post her for port removal tomorrow, make her nothing per oral at midnight. I discussed risks of bleeding, infection, need for subsequent port placement, possibility of pulmonary embolus, worsening deep venous thrombosis. She understands all this and consents. cc: Chico Ramirez MD
[2019-05-18] MEDS: SEROQUEL PO SCH (20:04)
[2019-05-18] MEDS: HEPARIN 25,000 UNITS/D5W 25,000 UNIT/250 ML IV.SOLN IV SCH (22:30)
[2019-05-19] MEDS: NORCO-7.5 PO PRN ×2 (07:49→16:14)
[2019-05-19] MEDS: PLAQUENIL PO SCH ×2 (09:25→20:15)
--- NOTE | 2019-05-19 10:44 | PROGRESS NOTE ---
DATE: 05/19/2019 SUBJECTIVE: Ms. Hunter is feeling a little better. She had a pretty good night. Still on a heparin drip. I think the plan is to remove the Port-A-Cath this afternoon. OBJECTIVE: Temperature 98.5 degrees pulse 97, respirations 20, blood pressure 122/72. Pupils are equal and round. Lungs are clear in all lung an. Cardiovascular Examination: Regular rhythm and rate without murmur or S3. Abdomen is soft. Skin is warm and dry. ASSESSMENT AND PLAN: 1. Deep venous thrombosis related to Port-A-Cath on the right side. She is on a heparin drip. Remove the Port-A-Cath. 2. Systemic lupus erythematosus, has immunoglobulin deficiency. Plan is to put her on anticoagulant and then probably replace her port down the road. 3. Headaches. Seems to be a little better controlled. 4. Chronic pain and so she is on [place]. I have given her a little more than she usually gets, hydrocodone 7.5 mg every 6 hours as needed for pain. 5. She is on Seroquel 300 mg at bedtime, takes Zanaflex 4 mg three times a day, and she is on hydroxychloroquine 200 mg twice a day for lupus. cc: Andrew Dalal MD
[2019-05-19] MEDS: ZANAFLEX PO SCH ×2 (12:07→16:14)
[2019-05-19] MEDS ORDERED: DIPRIVAN 1% ONE (14:11)
[2019-05-19] MEDS ORDERED: XYLOCAINE 1%/EPI 1:100,000 ONE (14:12)
--- NOTE | 2019-05-19 14:15 | GENERAL SURGERY PROGRESS NOTE ---
DATE: 05/19/2019 SUBJECTIVE: No events overnight. No fevers. No tachycardia. No upper extremity swelling. OBJECTIVE: On exam, she has a right-sided port that is intact with no cellulitis. No swelling. DIAGNOSTIC STUDIES: I have reviewed her labs. ASSESSMENT AND PLAN: A 49-year-old female with deep vein thrombosis associated with a port on the right. She has been on heparin now for 48 hours. I have recommended removal. She is n.p.o. We will take her to the operating room this afternoon for port removal. We discussed risks of bleeding, infection, damage to surrounding structures, need for assessment of port placement ideally in 4-6 weeks to allow adequate time for anticoagulation. We did also discuss the risk of pulmonary embolus associated with port removal. She understands and consents. cc: Chico Ramirez MD
[2019-05-19] MEDS ORDERED: VERSED ONE (14:23)
[2019-05-19] MEDS: DILAUDID ONE ×5 (14:57→15:45)
[2019-05-19] MEDS: SEROQUEL PO SCH (20:15)
--- NOTE | 2019-05-19 22:12 | OPERATIVE NOTE ---
PROCEDURE DATE: 05/19/2019 PREOPERATIVE DIAGNOSIS: Deep venous thrombosis associated with the right port. POSTOPERATIVE DIAGNOSIS: Deep venous thrombosis associated with the right port. PROCEDURE PERFORMED: Right port removal. ESTIMATED BLOOD LOSS: 5 mL. SPECIMENS: Right port. ANESTHESIA: MAC with local. INDICATION: A 49-year-old female who had a port placed several years ago. She developed a thrombus of her right internal jugular vein. Port removal is indicated after 48 hours of anticoagulation. OPERATIVE FINDINGS: Well encapsulated port, no purulence. OPERATIVE NOTE: Risks, benefits and alternatives were discussed with the patient, and she consented to the procedure, seen preoperatively and surgical site was confirmed. She was taken to the operating room, and IV anesthesia was administered. Her right neck and chest were prepped with Betadine and draped in usual fashion. After time-out, local anesthetic was infiltrated. A skin incision was made. The port was removed in its entirety holding pressure at the neck for several minutes. We noted hemostasis, reapproximated the dermis with interrupted 3-0 Vicryl sutures. Skin was closed with 4-0 Monocryl, and Dermabond was applied as well as a gauze pressure dressing. She tolerated it well. No complication. I spoke to family. cc: Chico Ramirez MD
[2019-05-19] MEDS: HEPARIN 25,000 UNITS/D5W 25,000 UNIT/250 ML IV.SOLN IV SCH (22:35)
[2019-05-20] MEDS: NORCO-7.5 PO PRN ×4 (02:25→20:32)
--- NOTE | 2019-05-20 09:15 | PROGRESS NOTE ---
DATE: 05/20/2019 SUBJECTIVE: She has had a good night, she is feeling better. She has a left jugular IV in place still getting IV heparin. Her Port-A-Cath was removed from the right side . OBJECTIVE: Temp 98.3 degrees, pulse 100, respirations 16, blood pressure 106/75.HEENT: Pupils are equal round. Lungs: Lungs are clear in all lung an. Cardiovascular: Regular rhythm and rate without murmur or S3. Abdomen: Soft. Skin: Is warm and dry. ASSESSMENT AND PLAN: 1. She has had a Port-A-Cath removed and we will keep her on IV heparin I think another 24 hours, then change her over to Xarelto and she will take 15 mg twice a day for 21 days and then 20 mg a day. Probably need to resume that for 3 months and then consideration of replacing venous access in a couple months' time. 2. Headaches are better controlled. She has chronic pain syndrome and she is on her [place]. Continue her Seroquel. 3. She has systemic lupus erythematosus. She is on hydroxychloroquine 200 mg b.i.d. cc: Andrew Dalal MD
[2019-05-20] MEDS: ZANAFLEX PO SCH ×3 (09:59→18:00)
[2019-05-20] MEDS: PLAQUENIL PO SCH ×2 (09:59→20:37)
[2019-05-20] MEDS: HEPARIN 25,000 UNITS/D5W 25,000 UNIT/250 ML IV.SOLN IV SCH (10:00)
[2019-05-20] MEDS: SEROQUEL PO SCH (20:32)
[2019-05-21] MEDS: NORCO-7.5 PO PRN ×2 (04:33→10:40)
[2019-05-21] MEDS: HEPARIN 25,000 UNITS/D5W 25,000 UNIT/250 ML IV.SOLN IV SCH (08:44)
[2019-05-21] MEDS: ZANAFLEX PO SCH ×2 (08:45→13:24)
[2019-05-21] MEDS: PLAQUENIL PO SCH (08:45)
[2019-05-21] MEDS ORDERED: NICODERM PATCH TD SCH (09:00)
--- NOTE | 2019-05-21 09:55 | DISCHARGE SUMMARY ---
ADMISSION DATE: 05/17/2019 DISCHARGE DATE: 05/21/2019 Ms. Hunter was admitted on 05/17/2019. REASON FOR ADMISSION: 1. This is a 49-year-old who is followed by Dr. Familia Saul. He had a right double-J stent placed back 01/30/2018 for nonobstructive stones in the left, became symptomatic. 2. Systemic lupus erythematosus. 3. Fibromyalgia. 4. Hypertension. 5. IgG deficiency. Gets immunoglobulin IV for Dr. Nolasco once a month. 6. Constipation. 7. Anxiety and depression. PAST SURGICAL HISTORY: 1. She had a Port-A-Cath placed on 04/01/2018. 2. Right ureteral double-J stent with cyst and stone extraction earlier back in August, I think of 2019. 3. Lithotripsy. 4. Sinus surgery. 5. Neck surgery. Had two different cervical spine surgeries, I think for degenerative cervical spine. 6. Status post hysterectomy. COURSE IN HOSPITAL: Port-A-Cath has clotted off a couple times recently, and this time it seems to be completely closed so she was admitted, put on IV heparin. The Port-A-Cath was removed. Continued anticoagulation for over 48 hours with IV heparin and feels she could go home today. We will put her on Xarelto 15 mg twice a day and then 20 mg once a day and she will pursue getting another port placed. We will see surgery back in a couple weeks. DISCHARGE MEDICATION: 1. She takes [place] at home 7.5, 3 times a day p.r.n. I will leave her some. 2. Plaquenil 200 mg b.i.d. 3. NicoDerm patch 21 mg daily. I will give her 14 of these and refills x 2. 4. Prednisone 20 mg she takes as directed daily. 5. Seroquel 300 mg daily. 6. Xarelto 15 mg twice a day for 21 days and then 20 mg daily with refills x 5. cc: Andrew Dalal MD
[2019-05-21 12:28] VITALS: BP 126/85
== END 2019-05-21 16:23 | disposition home or self-care (01) | DRG 315 ==
LOC: ED 10:03 → 4N 14:36
PROVIDERS: ATTEND Emergency Medicine